=== PATIENT | female | born 1960 | race Caucasian/White ===

== ENCOUNTER 2017-07-25 06:30 | Day surgery (SDC) | payer BC ==
[~2017-07-25 06:30] MED LIST: ADVAIR 250/501 DISK INH; BAYER CHEWABLE81 MG PO; COZAAR50 MG PO; PLAVIX75 MG PO; PROZAC40 MG PO; VENTOLIN HFA18 GM INH; VITAMIN D5000 UNIT PO
[2017-07-25] MEDS ORDERED: COMBIVENT RESPIM4 GM INH (06:58)
[2017-07-25] MEDS ORDERED: ZOCOR20 MG PO (06:59)
[2017-07-25] MEDS ORDERED: ZOFRAN4 MG PO (07:00)
[2017-07-25] MEDS ORDERED: BACLOFEN20 M1 (07:02)
[2017-07-25] MEDS ORDERED: ABILIFY10 MG PO (07:04)
[2017-07-25] MEDS ORDERED: SYMBICORT 80-10.2 GM INH (07:05)
[2017-07-25 07:22] LABS: HEMOGLOBIN 11.6 g/dL (12-16); MCH 27.6 pg (26.0-34.0); MCHC 32.2 g/dL (31.0-37.0); MCV 85.5 fL (80.0-100.0); RBC 4.21 10x6/uL (4.00-5.40); RDW 14.3 % (11.5-14.5); WBC 7.8 10x3/uL (4.8-10.8)
[2017-07-25 07:37] VITALS: BP 105/64; BMI 31.8
--- NOTE | 2017-07-25 11:27 | NUR ---
1100-patient updated on dr. landeros's expected time of arrival at 1 hour
--- NOTE | 2017-07-25 13:30 | NUR ---
PT REC'D TO ROOM VIA STRETCHER. AWAKE, ALERT, ORIENTED. PASSING FLATUS. [place] PROVIDED.
--- NOTE | 2017-07-25 13:40 | NUR ---
PT UP TO BR TO VOID.
--- NOTE | 2017-07-25 13:45 | NUR ---
SITTING UP AT BEDSIDE TOLERATING FULL LIQ DIET.
--- NOTE | 2017-07-25 14:03 | NUR ---
IV D/C'D CATH INTACT.
--- NOTE | 2017-07-25 14:15 | NUR ---
D/C INSTRUCTIONS EXPLAINED TO PT. VOICED UNDERSTANDING. COPIES OF ALL GIVEN TO PT. D/C'D HOME VIA W/C TO PRIVATE CAR.
--- NOTE | 2017-08-04 10:04 | OP ---
PATIENT NAME: HEATH PINA MEDICAL RECORD: [id number] :60 LOCATION:D.OPS ADMISSION DATE: SURGEON: KASHIF SANDOVAL MD DATE OF OPERATION: 07/25/2017 PREOPERATIVE DIAGNOSIS: History of colon polyps, need of surveillance colonoscopy. POSTOPERATIVE DIAGNOSES: History of colon polyps, need of surveillance colonoscopy, with a new 7-mm sessile polyp at 20 cm. PROCEDURES: 1. Total colonoscopy to cecum. 2. Hot biopsy forceps polypectomy times 1. SURGEON: Kashif Sandoval MD SENIOR MATERIALS PLANNER: None. BLOOD LOSS: Minimal. ANESTHESIA: IV sedation. COMPLICATIONS: None. The risks, possible complications, and alternatives to procedure were explained to the patient. She elects to proceed. The discussion specifically included, but was not limited to, bleeding, requiring an emergency reoperation; infection; intestinal injury as well as need for additional procedures. ENDOSCOPIC COURSE: The patient was conveyed to endoscopy suite electively on 07/25/2017. IV sedation was induced by the anesthesia staff. The patient was placed in the Dorsey position. A digital rectal examination was performed. A colonoscope was inserted through the anus. It was easily advanced to the cecum. Following withdrawal, I irrigated and aspirated extensively. The pullback was greater than an 18-minute pullback. I dragged the folds. A polyp was noted. It was removed in its entirety utilizing hot biopsy forceps polypectomy technique. A retroflexed view was obtained in the rectum. I then unretroflexed the scope and removed it under direct vision. I plan to see the patient in my office in 2-3 weeks. I will plan for next surveillance colonoscopy to take place in 3 years. TRANSINT:[id number] Voice Confirmation ID: [id number] DOCUMENT ID: [id number] KASHIF SANDOVAL MD at 1004 CC: SEAN LOPEZ MD [id number] DICTATION DATE: 07/25/17 1317 VISCOSITY WORKER: 07/25/17 1431 [facility] 07/25/[address] [address]
--- NOTE | 2017-08-04 10:04 | HP ---
PATIENT: HEATH PINA MEDICAL RECORD: [id number] ACCOUNT: [id number] LOCATION:[facility] : 60 ADMISSION DATE: 07/25/17 HISTORY AND PHYSICAL EXAMINATION CHIEF COMPLAINT: History of colon polyps. HISTORY OF PRESENT ILLNESS: The patient has a history of colon polyps. She had a tubular adenoma at 30 cm. This is from her colonoscopy about a year ago. She has had no rectal bleeding. No abdominal pain. SOCIAL HISTORY: Ex-smoker. PAST MEDICAL AND SURGICAL HISTORY: Coronary stents times 2, colonoscopy, , hysterectomy, cholecystectomy, arthritis, and COPD. ALLERGIES: No known drug allergies. HOME MEDICINES: Include vitamin D, Prozac, Zofran, Symbicort, aspirin, Abilify, albuterol, and Zocor. PHYSICAL EXAMINATION: GENERAL: The patient does not appear acutely ill. She does not appear chronically ill. VITAL SIGNS: Reviewed. HEAD: External ears appear normal. EYES: Extraocular movements are intact. NECK: Trachea is midline. CHEST: No intercostal retractions. PULMONARY: Nonlabored, no stridor. ABDOMEN: Nontender. IMPRESSION: History of colon polyps. PLAN: Will be surveillance colonoscopy. TRANSINT:[id number] Voice Confirmation ID: [id number] DOCUMENT ID: [id number] MARIVEL SANDOVAL MD at 1004 CC: SEAN LOPEZ MD and BRISEIDA BARNES MD [id number] DICTATION DATE: 07/25/17 1232 HYDRAULICS ENGINEER: 07/25/17 1259 [facility] 07/25/[address] [address]
== END 2017-07-25 14:21 | disposition home or self-care (01) ==
LOC: D.OPS 06:30
PROVIDERS: Anesthesiology
DX: Z12.11 Encounter for screening for malignant neoplasm of colon (principal); K63.5 Polyp of colon; Z86.010 Personal history of colon polyps; J44.9 Chronic obstructive pulmonary disease, unspecified; M19.90 Unspecified osteoarthritis, unspecified site; Z95.5 Presence of coronary angioplasty implant and graft; Z87.891 Personal history of nicotine dependence; Z79.82 Long term (current) use of aspirin; Z79.899 Other long term (current) drug therapy; Z01.812 Encounter for preprocedural laboratory examination

== ENCOUNTER → 2019-01-01 08:12 | Outpatient (CLI) | payer BC ==
[~2019-01-01 08:12] MED LIST changes: +ABILIFY10 MG PO; +BACLOFEN20 M1; +COMBIVENT RESPIM4 GM INH; +SYMBICORT 80-10.2 GM INH; +ZOCOR20 MG PO; +ZOFRAN4 MG PO
== END | disposition home or self-care (01) ==
LOC: D.RT 08:12
PROVIDERS: ATTEND Nurse Practitioner Acute Care
DX: J44.9 Chronic obstructive pulmonary disease, unspecified (principal)